=== PATIENT | female | born 1970 | race African-American/Black ===

== ENCOUNTER 2016-04-22 03:08 | Emergency (ER) | payer OTHER ==
[~2016-04-22] VITALS: Ht 157.5 cm; Wt 85.1 kg
[~2016-04-22 03:08] MED LIST: ACTOS; LISINOPRIL; Lipitor PO; METFORMIN; MOTRIN800 MG PO; NORVASC; NOVOLIN N100 UNITS/ SC; PRILOSEC; Pravachol PO; ULTRAM50 MG PO
[2016-04-22 04:19] LABS: INFLUENZA A VIRAL ANTIGEN NEGATIVE; INFLUENZA B VIRAL ANTIGEN NEGATIVE
[2016-04-22] MEDS ORDERED: SUDAFED 12-HOU120 MG PO (04:30)
[2016-04-22 04:56] VITALS: BP 147/93
== END 2016-04-22 04:56 | disposition home or self-care (01) ==
LOC: EME 03:08
PROVIDERS: Emergency Medicine
DX: B34.9 Viral infection, unspecified (principal); J02.8 Acute pharyngitis due to other specified organisms; J06.9 Acute upper respiratory infection, unspecified; F17.200 Nicotine dependence, unspecified, uncomplicated
CPT/HCPCS: 87502; 87651 90; 99281; 99284

== ENCOUNTER 2017-09-08 14:51 | Emergency (ER) | payer OTHER ==
[~2017-09-08] VITALS: Ht 157.5 cm; Wt 90.0 kg
[~2017-09-08 14:51] MED LIST changes: +SUDAFED 12-HOU120 MG PO
[2017-09-08] MEDS ORDERED: TESSALON PERLE100 MG PO (16:42)
[2017-09-08] MEDS ORDERED: ZITHROMAX Z-PA250 MG PO (16:42)
[2017-09-08] MEDS ORDERED: FLONASE16 G1 BOTH NARES (16:42)
[2017-09-08 16:56] VITALS: BP 113/67
== END 2017-09-08 16:59 | disposition home or self-care (01) ==
LOC: EME 14:51 → EXP 14:51
DX: J06.9 Acute upper respiratory infection, unspecified (principal); F17.200 Nicotine dependence, unspecified, uncomplicated; R19.7 Diarrhea, unspecified; E11.65 Type 2 diabetes mellitus with hyperglycemia; Z79.4 Long term (current) use of insulin; E78.5 Hyperlipidemia, unspecified; Z85.43 Personal history of malignant neoplasm of ovary; Z85.42 Personal history of malignant neoplasm of other parts of uterus; Z88.0 Allergy status to penicillin
CPT/HCPCS: 71046; 94640; 99281; 99283